=== PATIENT | male | born 1945 | race Caucasian/White ===

== ENCOUNTER → 2024-07-03 | Outpatient (CLI) | payer MEDICARE, BC, SELFPAY ==
[2024-07-03 12:27] LABS: Basophils # (Auto) 0.1 Thou/mm3 (0.0-0.2); Basophils % (Auto) 1 % (0-2.5); Eosinophils # (Auto) 0.7 Thou/mm3 (0.0-0.5); Eosinophils % (Auto) 9 % (0-10); Hematocrit 42.5 % (41.0-53.0); Hemoglobin 13.7 g/dL (13.5-16.0); Immature Granulocytes % (Auto) 1 % (0-0); Immature Granulocytes Auto 0.04 Thou/mm3 (0.00-0.00); Lymphocytes # (Auto) 1.8 Thou/mm3 (1.0-4.8); Lymphocytes % (Auto) 23 % (10-50); Mean Corpuscular HGB Conc 32.2 g/dl (31.0-37.0); Mean Corpuscular Hemoglobin 31.1 pg (25.0-35.0); Mean Corpuscular Volume 97 fL (80-100); Monocytes # (Auto) 0.9 Thou/mm3 (0.0-0.8); Monocytes % (Auto) 11 % (0-12); Neutrophils # (Auto) 4.5 Thou/mm3 (1.8-7.7); Neutrophils % (Auto) 56 % (37-80); Nucleated Red Blood Cell % 0 /100 WBC (0); Platelet Count 374 Thou/mm3 (140-440); RDW Standard Deviation 47.5 fL (35.1-43.9); White Blood Count 7.9 Thou/mm3 (3.8-10.6)
[2024-07-03 12:52] LABS: Alanine Aminotransferase 19 U/L (10-49); Albumin, Serum 4.1 gm/dL (3.4-4.8); Albumin/Globulin Ratio 1.3 (1.2-2.2); Alkaline Phosphatase 67 U/L (46-116); Anion Gap 2 (7-16); Aspartate Amino Transferase 15 U/L (0-34); BUN/Creatinine Ratio 15 Ratio (12-20); Bilirubin,Total 0.6 mg/dL (0.3-1.2); Blood Urea Nitrogen 27 mg/dL (9-23); Carbon Dioxide 29.8 mMol/L (20.0-31.0); Chloride 104 mMol/L (98-107); Creatinine (Component) 1.8 mg/dL (0.6-1.3); Globulin 3.1 gm/dL (2.3-3.5); Glucose 110 mg/dL (74-106); Osmolality,Calculated 278 (275-295); Sodium 136 mMol/L (136-145); Total Protein 7.2 gm/dL (5.7-8.2); eGFR 39 See Note
== END | disposition home or self-care (01) ==
LOC: COPL 11:22
PROVIDERS: PCP Family Medicine; Referring Provider Family Medicine; Visit Provider Family Medicine
DX: I10 Essential (primary) hypertension (principal)
CPT/HCPCS: 36415; 80053; 85025

== ENCOUNTER → 2024-07-31 | Outpatient (CLI) | payer MEDICARE, BC, SELFPAY ==
--- NOTE | 2024-07-31 15:05 | XR_ITS ---
Examination: Knee, left , 3 views Technique: Knee AP, lateral, oblique 3 views, standing Date and time of exam: July 31, 2024 1610 hours INDICATIONS: Left knee pain months FINDINGS: Total left knee arthroplasty. Satisfactory alignment No fracture No loosening of the prosthetic components IMPRESSION: Total left knee arthroplasty with satisfactory alignment
--- NOTE | 2024-07-31 15:05 | XR_ITS ---
Examination: Bilateral knees, standing AP 2 views. Technique: Standing bilateral AP knees single view, standing bilateral PA knees standing 30 degrees flexion 2 views Exam date and time: July 31, 2024 1410 hours INDICATIONS: Knee pain months FINDINGS: Bilateral total knee arthroplasties. Satisfactory alignment No loosening of the prosthetic components Mild to moderate osteopenia No fracture IMPRESSION: Bilateral total knee arthroplasties with satisfactory
--- NOTE | 2024-07-31 15:05 | XR_ITS ---
Examination:Left hip AP, lateral, AP pelvis 3 views Technique: Hip AP lateral, AP pelvis, 3 views Exam date and time:July 31, 2024 1610 hours INDICATIONS: Left hip pain months FINDINGS: Moderate osteopenia Advanced left hip osteoarthritis Right hip bipolar hemiarthroplasty with satisfactory alignment No pelvic fracture IMPRESSION: Advanced left hip osteoarthritis.
== END | disposition home or self-care (01) ==
LOC: CDIM 14:55
PROVIDERS: PCP Family Medicine; Referring Provider Orthopaedic Surgery; Visit Provider Orthopaedic Surgery
DX: M16.12 Unilateral primary osteoarthritis, left hip (principal); M25.562 Pain in left knee; M25.561 Pain in right knee; Z96.653 Presence of artificial knee joint, bilateral
CPT/HCPCS: 73502; 73560; 73562; 73564; 73565

== ENCOUNTER 2024-10-02 10:39 | Outpatient (AMB) | payer MEDICARE, BC, SELFPAY ==
--- NOTE | 2024-10-02 11:07 | PD.ORTHCLVIS ---
Vital signs 10/02/24 11:08 Height 1.78 m Height Method Stated Weight 154.902 kg Weight Measurement Method Standing Scale BMI 48.9 BP 138/82 H Blood Pressure Source Automatic Cuff Blood Pressure Location Right Upper Arm Position Sitting Respiration 18 Pulse 76 Pulse Source Monitor Temp 97.6 F Temp Source Temporal Artery Scan Pulse Oximetry (%) 93 L Oxygen Delivery Method Room Air Med/Allergies Allergies & Medications Allergies No Known Allergies Allergy (Verified 10/02/24 11:09) Medication Reconciliation diltiazem HCl 180 mg capsule,extended release 24 hr, controlled (DILT-XR) 180 mg PO QDAY 07/04/19 [History Confirmed 10/02/24] doxazosin 8 mg tablet 8 mg PO QDAY 07/04/19 [History Confirmed 10/02/24] losartan 100 mg tablet 100 mg PO QDAY 07/04/19 [History Confirmed 10/02/24] metoprolol succinate 100 mg tablet,extended release 24 hr 50 mg PO QDAY 07/04/19 [History Confirmed 10/02/24] rivaroxaban 20 mg tablet (Xarelto) 20 mg PO QDAY 07/04/19 [History Confirmed 10/02/24] acetaminophen 500 mg capsule 500 mg PO BID 03/02/23 [History Confirmed 10/02/24] doxycycline monohydrate 100 mg capsule 100 mg PO BID #20 caps 08/29/23 [Rx Confirmed 10/02/24] Exam Exam Patient is in no acute distress and is cooperative with the examination today. Patient has a normal mood and affect. Breathing is nonlabored. In no respiratory distress. Bilateral extremities were evaluated and demonstrates sensation intact to light touch. Palpable pedal pulses are present. No significant edema is present. Left hip range of motion is very poor. There is pain limited. He has a positive logroll X-rays demonstrate significant left hip arthritis Assessment and Plan Problem List (1) Arthritis of left hip: Status: Acute Plan: Patient is a pleasant 79-year-old male with significant left hip arthritis. He is significantly high risk for medical complications given his BMI as well as his ongoing medical comorbidities. We discussed with him that I do not recommend a hip replacement given his body habitus and his medical history including the fact that he had significant issues with the last surgeries. I would recommend that we go back and see Dr. Beard as he is a lot more willing to do high BMI and high risk surgeries and I am in a small hospital. I do think that a university or tertiary care setting is reasonable for this. I had a long discussion with him about this. 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 ([id number]) MA Intake Visit Data Collection New Patient or Established: New Patient (never been to [facility]) Reason for Visit:: OA LEFT HIP Seen by Clinical Staff ONLY (RN/MA): No Surface Grinder Required: No PCP or OBGYN visit in last 3 months: Yes Hx Now: No Do You Feel Safe at Home: Yes Authorities Contacted: N/A Questionairres Past Medical History Past Medical History Have you ever been diagnosed with any of the following: Neurological Problems Cerebrovascular Accident (CVA): Yes Seizures: No Cardiology Problems Cardiac Arrhythmia: Yes Atrial Fibrillation: Yes Congestive Heart Failure: No Edema: Yes Cellulitis: Yes Hypertension: Yes Respiratory Problems Chronic Obstructive Pulmonary Disease (COPD): No Asthma: Yes Pneumonia: Yes Sleep Apnea: Yes Stomache/Intestinal Problems Hepatitis: No Gastroesophageal Reflux Disease: Yes Obesity: Yes Genital/Urinary Problems Renal Disease: No Musculoskeletal Problems Arthritis: Yes Carpal Tunnel Syndrome: Yes Degenerative Joint Disease: Yes Head,Eye,Nose,Throat Problems Cataracts: Yes Endocrine Problems Diabetes Mellitus Type 1: No Diabetes Mellitus Type 2: No Blood Problems Anemia: No Clotting Problems: No Psychologic Problems Depression: Yes Anxiety: Yes Other Problems Hospitalization: Yes Shingles: Yes Falls: No Blood Transfusions: No Blood Transfusion Reaction: No Anesthesia Reactions: No MRSA: Yes Chicken Pox: Yes Measles: Yes Mumps: Yes Cancer: No Surgical History Total Hip Replacement: Yes (LEFT) Total Knee Replacement: Yes (BILATERAL) Subjective Visit Visit for: new patient and hip (LEFT) Immunization / Flu Flu Vaccine in the Last 12 Months: Yes Flu Vaccine Exclusion Criteria: Already Received History of Present Illness Chief complaint: Left hip pain Archie is a very pleasant 79-year-old male with left hip pain and left hip arthritis. He has right hip replaced previously at [facility] with Dr. Beard. He uses a cane to ambulate. He has A-fib is on 20 mg of Xarelto. He had a prior hip replacement and almost coded on the table from what sounds like. He is extremely high risk for surgery. His BMI is currently 49. Pain Pain level (0-10): 8 Pain duration: ALL DAY Pain location: groin and outside (lateral) Pain quality: dull, aching and burning Pain timing: night, increases with activity and stairs Associated signs & symptoms: weakness Ambulatory data Ambulatory device: cane Treatments Improvement with previous injections: No Improvement with PT: No Improvement with NSAIDS: no Review of Systems Review of Systems: All systems negative unless otherwise noted in HPI.
[2024-10-02 11:08] VITALS: BP 138/82; PULSE 76; RESP 18; TEMP 36.4; O2SAT 93; BMI 48.9
== END 2024-10-02 11:30 | disposition home or self-care (01) ==
LOC: HODSRG 10:39
PROVIDERS: PCP Family Medicine; Referring Provider Family Medicine; Supervising Provider Orthopaedic Surgery Adult Reconstructive Orthopaedic Surgery; Visit Provider Orthopaedic Surgery Adult Reconstructive Orthopaedic Surgery
DX: M16.12 Unilateral primary osteoarthritis, left hip (principal); I48.91 Unspecified atrial fibrillation; Z96.641 Presence of right artificial hip joint; I10 Essential (primary) hypertension; K21.9 Gastro-esophageal reflux disease without esophagitis; G47.30 Sleep apnea, unspecified; E66.9 Obesity, unspecified; Z68.42 Body mass index [BMI] 45.0-49.9, adult; Z86.73 Personal history of transient ischemic attack (TIA), and cerebral infarction without residual deficits
CPT/HCPCS: 99204; G0463

== ENCOUNTER → 2025-07-23 | Outpatient (CLI) | payer MEDICARE, BC, SELFPAY ==
[2025-07-23 11:35] LABS: Collection Type, Urine Clean Catch
[2025-07-23 12:26] LABS: Bacteria,Urine 3+; Bilirubin,Urine Negative (Negative); Blood,Urine 3+ (Negative); Color,Urine Yellow (Lt Yel-Yel); Glucose, Urine Negative (Negative); Hyaline Casts,Urine < 1 /hpf (0-1); Ketones,Urine Negative (Negative); Leukocyte Esterase,Urine Positive (Negative); Nitrite,Urine Positive (Negative); PH,Urine 6.0 (5.0-7.0); Protein,Urine 1+ (Neg - Trace); RBC,Urine 56 /hpf (0-3); Specific Gravity,Urine 1.016 (1.001-1.035); Squamous Epithelial Cell,Urine 15 /hpf (0-5); Urobilinogen,Urine Negative mg/dL (0.0-1.0); WBC,Urine 1362 /hpf (0-5)
[2025-07-23 12:27] LABS: Basophils # (Auto) 0.1 Thou/mm3 (0.0-0.2); Basophils % (Auto) 1 % (0-2.5); Eosinophils # (Auto) 0.7 Thou/mm3 (0.0-0.5); Eosinophils % (Auto) 9 % (0-10); Hematocrit 42.5 % (41.0-53.0); Hemoglobin 13.7 g/dL (13.5-16.0); Immature Granulocytes Auto 0.02 Thou/mm3 (0.00-0.00); Lymphocytes # (Auto) 2.1 Thou/mm3 (1.0-4.8); Lymphocytes % (Auto) 30 % (10-50); Mean Corpuscular HGB Conc 32.2 g/dl (31.0-37.0); Mean Corpuscular Hemoglobin 31.6 pg (25.0-35.0); Mean Corpuscular Volume 98 fL (80-100); Monocytes # (Auto) 0.7 Thou/mm3 (0.0-0.8); Monocytes % (Auto) 10 % (0-12); Neutrophils # (Auto) 3.6 Thou/mm3 (1.8-7.7); Neutrophils % (Auto) 50 % (37-80); Nucleated Red Blood Cell # 0.00 Thou/mm3 (0.00-0.00); Nucleated Red Blood Cell % 0 /100 WBC (0); Platelet Count 324 Thou/mm3 (140-440); RDW Standard Deviation 49.2 fL (35.1-43.9); Red Blood Count 4.33 Miln/mm3 (4.50-5.90); White Blood Count 7.1 Thou/mm3 (3.8-10.6)
[2025-07-23 12:28] LABS: Clarity,Urine Hazy (Clear/Hazy)
[2025-07-23 12:41] LABS: Alanine Aminotransferase 25 U/L (10-49); Albumin, Serum 4.2 gm/dL (3.4-4.8); Albumin/Globulin Ratio 1.2 (1.2-2.2); Alkaline Phosphatase 71 U/L (46-116); Anion Gap 10 (7-16); Aspartate Amino Transferase 21 U/L (0-34); BUN/Creatinine Ratio 14 Ratio (12-20); Bilirubin,Total 0.4 mg/dL (0.3-1.2); Blood Urea Nitrogen 25 mg/dL (9-23); Calcium 9.3 mg/dL (8.3-10.6); Calcium (Corrected) 9.3 mg/dL (8.5-10.1); Carbon Dioxide 27.5 mMol/L (20.0-31.0); Cardiac Risk Estimate 3.0 RATIO (4.0-6.7); Chloride 105 mMol/L (98-107); Cholesterol 120 mg/dL (132-200); Creatinine (Component) 1.8 mg/dL (0.6-1.3); Globulin 3.5 gm/dL (2.3-3.5); Glucose 112 mg/dL (74-106); HDL Cholesterol 40 mg/dL (40-60); LDL Cholesterol,Calculated 65 mg/dL (0-130); Osmolality,Calculated 288 (275-295); Potassium 4.8 mMol/L (3.4-5.1); Sodium 142 mMol/L (136-145); Thyroid Stimulating Hormone 6.24 uIU/mL (0.55-4.78); Total Protein 7.7 gm/dL (5.7-8.2); Triglycerides 73 mg/dL (30-150); eGFR 38 See Note
== END | disposition home or self-care (01) ==
PROVIDERS: PCP Family Medicine; Referring Provider Family Medicine; Visit Provider Family Medicine
DX: I10 Essential (primary) hypertension (principal)
CPT/HCPCS: 36415; 80053; 80061; 81001; 84443; 85025